=== PATIENT | female | born 1950 | race Caucasian/White ===

== ENCOUNTER → 2019-08-08 | Outpatient (CLI) | payer BC, MEDICARE ==
[2019-08-08 08:45] LABS: BASOPHILS % (AUTO) 1 % (0-10); EOSINOPHILS % (AUTO) 2 % (0-10); HEMATOCRIT 40 % (35-52); HEMOGLOBIN 13.1 G/DL (11.5-16.0); LYMPHOCYTES % (AUTO) 31 % (12-44); MEAN CORPUSCULAR HEMOGLOBIN 29 PG (25-34); MEAN CORPUSCULAR HGB CONC 33 G/DL (32-36); MEAN CORPUSCULAR VOLUME 87 FL (80-99); MEAN PLATELET VOLUME 9.4 FL (7.4-10.4); MONOCYTES % (AUTO) 9 % (0-12); NEUTROPHILS % (AUTO) 57 % (42-75); PLATELET COUNT 281 10^3/uL (130-400); WHITE BLOOD COUNT 5.7 10^3/uL (4.3-11.0)
[2019-08-08 08:46] LABS: BASOPHILS # (AUTO) 0.1 10^3/uL (0.0-0.1); EOSINOPHILS # (AUTO) 0.1 10^3/uL (0.0-0.3); LYMPHOCYTES # (AUTO) 1.8 X 10^3 (1.0-4.0); MONOCYTES # (AUTO) 0.5 X 10^3 (0.0-1.0); NEUTROPHILS # (AUTO) 3.3 X 10^3 (1.8-7.8)
[2019-08-08 08:50] LABS: BACTERIA,URINE NEGATIVE /HPF; BILIRUBIN,URINE NEGATIVE (NEGATIVE); CLARITY,URINE CLEAR; COLOR,URINE YELLOW; GLUCOSE, URINE (UA) NEGATIVE (NEGATIVE); KETONES,URINE NEGATIVE (NEGATIVE); LEUKOCYTE ESTERASE ,URINE NEGATIVE (NEGATIVE); NITRITE,URINE NEGATIVE (NEGATIVE); PROTEIN,URINE NEGATIVE (NEGATIVE); RBC,URINE 0-2 /HPF; SQUAMOUS EPITHELIAL CELL,UR 0-2 /HPF
[2019-08-08 09:25] LABS: ALANINE AMINOTRANSFERASE 28 U/L (0-55); ALBUMIN 4.3 GM/DL (3.2-4.5); ALKALINE PHOSPHATASE 73 U/L (40-136); BILIRUBIN,TOTAL 0.2 MG/DL (0.1-1.0); BUN/CREATININE RATIO 18; CALCIUM 9.7 MG/DL (8.5-10.1); CARBON DIOXIDE 25 MMOL/L (21-32); CHLORIDE 102 MMOL/L (98-107); CREATININE SERUM 0.88 MG/DL (0.60-1.30); GFR ESTIMATED > 60; GLUCOSE 93 MG/DL (70-105); SODIUM 140 MMOL/L (135-145); TOTAL PROTEIN 7.3 GM/DL (6.4-8.2)
[2019-08-09 01:08] LABS: CHOLESTEROL 222 MG/DL (< 200); HDL CHOLESTEROL 87 MG/DL (40-60); TRIGLYCERIDES 50 MG/DL (<150); VLDL CHOLESTEROL 10 MG/DL (5-40)
== END ==
LOC: LAB FS 07:52
PROVIDERS: ATTEND Family Medicine
DX: E11.9 Type 2 diabetes mellitus without complications (principal)
CPT/HCPCS: 36415; 80053; 80061; 81000; 82043; 83036; 85025

== ENCOUNTER → 2020-04-08 | Outpatient (CLI) | payer MEDICARE, BC ==
[2020-04-08 10:15] LABS: POTASSIUM 4.9 MMOL/L (3.6-5.0); SODIUM 139 MMOL/L (135-145)
[2020-04-08 10:16] LABS: CARBON DIOXIDE 26 MMOL/L (21-32); CHLORIDE 101 MMOL/L (98-107)
[2020-04-08 10:17] LABS: ALANINE AMINOTRANSFERASE 17 U/L (0-55); ALBUMIN 4.3 GM/DL (3.2-4.5); ALKALINE PHOSPHATASE 101 U/L (40-136); BILIRUBIN,TOTAL 0.2 MG/DL (0.1-1.0); BUN/CREATININE RATIO 22; CALCIUM 9.6 MG/DL (8.5-10.1); CREATININE SERUM 0.77 MG/DL (0.60-1.30); GFR ESTIMATED > 60; GLUCOSE 168 MG/DL (70-105); TOTAL PROTEIN 7.4 GM/DL (6.4-8.2)
[2020-04-08 10:18] LABS: BASOPHILS % (AUTO) 1 % (0-10); EOSINOPHILS % (AUTO) 2 % (0-10); HEMATOCRIT 38 % (35-52); HEMOGLOBIN 12.6 G/DL (11.5-16.0); LYMPHOCYTES % (AUTO) 39 % (12-44); MEAN CORPUSCULAR HEMOGLOBIN 29 PG (25-34); MEAN CORPUSCULAR HGB CONC 33 G/DL (32-36); MEAN CORPUSCULAR VOLUME 88 FL (80-99); MEAN PLATELET VOLUME 9.7 FL (7.4-10.4); MONOCYTES % (AUTO) 8 % (0-12); NEUTROPHILS # (AUTO) 2.5 X 10^3 (1.8-7.8); NEUTROPHILS % (AUTO) 50 % (42-75); PLATELET COUNT 274 10^3/uL (130-400)
[2020-04-08 10:19] LABS: EOSINOPHILS # (AUTO) 0.1 10^3/uL (0.0-0.3); MONOCYTES # (AUTO) 0.4 X 10^3 (0.0-1.0)
[2020-04-08 14:58] LABS: CHOLESTEROL 210 MG/DL (< 200); HDL CHOLESTEROL 83 MG/DL (40-60); TRIGLYCERIDES 62 MG/DL (<150); VLDL CHOLESTEROL 12 MG/DL (5-40)
== END ==
LOC: LAB FS 08:48
PROVIDERS: ATTEND Family Medicine
DX: E11.9 Type 2 diabetes mellitus without complications (principal)
CPT/HCPCS: 36415; 80053; 80061; 82043; 83036; 85025

== ENCOUNTER → 2020-10-22 | Outpatient (CLI) | payer MEDICARE, BC ==
--- NOTE | 2020-10-22 14:40 | Diagnostic Imaging Report ---
INDICATION: Fall with right wrist pain. TIME OF EXAM: 01:41 p.m. FINDINGS: Three views of right wrist demonstrate impacted fracture distal radius. The possibility of intra-articular extension cannot be entirely excluded. Distal ulna is intact. Carpus is intact. IMPRESSION: Nondisplaced distal radius fracture. Dictated by: Dictated on workstation # [id number]
--- NOTE | 2020-10-22 14:50 | Diagnostic Imaging Report ---
INDICATION: Fall with right hand pain. Time of exam 1:39 PM 3 views of the right hand were obtained. Metacarpals and phalanges are intact. There appears be a fracture of the distal radius. This will be assessed on wrist radiographs. IMPRESSION: Findings suggestive of distal radius fracture. This will be assessed on the dedicated wrist radiograph. Dictated by: Dictated on workstation # [id number]
== END ==
LOC: RAD FS 13:31
PROVIDERS: ATTEND Family Medicine
DX: S52.501A Unspecified fracture of the lower end of right radius, initial encounter for closed fracture (principal); W19.XXXA Unspecified fall, initial encounter
CPT/HCPCS: 73110; 73130

== ENCOUNTER → 2020-10-26 | Outpatient (CLI) | payer MEDICARE, BC ==
[2020-10-26 10:41] LABS: CLARITY,URINE CLOUDY; COLOR,URINE YELLOW; GLUCOSE, URINE (UA) NEGATIVE (NEGATIVE); KETONES,URINE TRACE (NEGATIVE); LEUKOCYTE ESTERASE ,URINE 3+ (NEGATIVE); NITRITE,URINE POSITIVE (NEGATIVE); PROTEIN,URINE 1+ (NEGATIVE)
[2020-10-26 10:42] LABS: BACTERIA,URINE FEW /HPF; BILIRUBIN,URINE NEGATIVE (NEGATIVE); RBC,URINE 0-2 /HPF; WBC,URINE >100 /HPF
== END ==
LOC: LAB FS 09:58
PROVIDERS: ATTEND Family Medicine
DX: R30.9 Painful micturition, unspecified (principal)
CPT/HCPCS: 81000; 87077; 87088; 87186

== ENCOUNTER → 2020-12-24 | Outpatient (CLI) | payer MEDICARE, BC ==
[2020-12-24 08:26] LABS: COLOR,URINE YELLOW
[2020-12-24 08:27] LABS: BACTERIA,URINE NEGATIVE /HPF; BILIRUBIN,URINE NEGATIVE (NEGATIVE); CLARITY,URINE CLEAR; GLUCOSE, URINE (UA) NEGATIVE (NEGATIVE); KETONES,URINE NEGATIVE (NEGATIVE); LEUKOCYTE ESTERASE ,URINE NEGATIVE (NEGATIVE); NITRITE,URINE NEGATIVE (NEGATIVE); PH,URINE 6.5 (5-9); PROTEIN,URINE NEGATIVE (NEGATIVE); SQUAMOUS EPITHELIAL CELL,UR RARE /HPF; WBC,URINE RARE /HPF
[2020-12-24 08:27] LABS: WHITE BLOOD COUNT 6.2 10^3/uL (4.3-11.0)
[2020-12-24 08:28] LABS: BASOPHILS % (AUTO) 1 % (0-10); EOSINOPHILS % (AUTO) 3 % (0-10); HEMATOCRIT 36 % (35-52); HEMOGLOBIN 11.8 G/DL (11.5-16.0); LYMPHOCYTES % (AUTO) 29 % (12-44); MEAN CORPUSCULAR HEMOGLOBIN 28 PG (25-34); MEAN CORPUSCULAR HGB CONC 33 G/DL (32-36); MEAN CORPUSCULAR VOLUME 87 FL (80-99); MEAN PLATELET VOLUME 9.5 FL (7.4-10.4); MONOCYTES % (AUTO) 8 % (0-12); NEUTROPHILS # (AUTO) 3.7 X 10^3 (1.8-7.8); NEUTROPHILS % (AUTO) 59 % (42-75); PLATELET COUNT 237 10^3/uL (130-400)
[2020-12-24 08:29] LABS: BAND NEUTROPHILS 0 %; BASOPHILS % (MANUAL) 1 %; CHLORIDE 101 MMOL/L (98-107); EOSINOPHILS # (AUTO) 0.2 10^3/uL (0.0-0.3); EOSINOPHILS % (MANUAL) 2 %; LYMPHOCYTES # (AUTO) 1.8 X 10^3 (1.0-4.0); LYMPHOCYTES % (MANUAL) 36 %; MONOCYTES # (AUTO) 0.5 X 10^3 (0.0-1.0); MONOCYTES % (MANUAL) 1 %; NEUTROPHILS % (MANUAL) 60 %; POTASSIUM 4.2 MMOL/L (3.6-5.0); SODIUM 140 MMOL/L (135-145)
[2020-12-24 08:30] LABS: ALANINE AMINOTRANSFERASE 12 U/L (0-55); ALKALINE PHOSPHATASE 69 U/L (40-136); BILIRUBIN,TOTAL 0.3 MG/DL (0.1-1.0); BUN/CREATININE RATIO 22; CALCIUM 9.3 MG/DL (8.5-10.1); CARBON DIOXIDE 27 MMOL/L (21-32); CREATININE SERUM 0.81 MG/DL (0.60-1.30); GFR ESTIMATED > 60; GLUCOSE 108 MG/DL (70-105); TOTAL PROTEIN 7.1 GM/DL (6.4-8.2)
== END ==
LOC: LAB FS 07:15
PROVIDERS: ATTEND Family Medicine
DX: E10.9 Type 1 diabetes mellitus without complications (principal); R31.29 Other microscopic hematuria; R63.4 Abnormal weight loss
CPT/HCPCS: 36415; 80053; 81000; 82043; 83036; 84443; 84681; 85007; 85027

== ENCOUNTER 2021-06-25 13:11 | Emergency (ER) | payer MEDICARE, BC ==
[~2021-06-25] VITALS: Ht 162.5 cm; Wt 52.1 kg
--- NOTE | 2021-06-25 13:20 | ED Upper Extremity ---
General Stated Complaint: RT ELBOW INJ History of Present Illness Date Seen by Provider: Jun 25, 2021 Time Seen by Provider: 13:18 Initial Comments 71-year-old female presents with right elbow injury. Patient reports that she slipped due to the rain and fell. Patient reports she landed directly on her right elbow onto concrete. Patient has pain is mostly on the medial aspect. Patient thinks she is up-to-date on her tetanus. She reports a small skin tear on her left knee but does not feel that that is to be evaluated. Allergies and Home Medications Allergies Coded Allergies: Sulfa (Sulfonamide Antibiotics) (Verified Allergy, Unknown, 06/25/21) nabumetone (Verified Allergy, Unknown, 06/25/21) nitrofurantoin (Verified Allergy, Unknown, 06/25/21) Patient Home Medication List Home Medication List Reviewed: Yes Review of Systems Constitutional: no symptoms reported EENTM: no symptoms reported Respiratory: no symptoms reported Cardiovascular: no symptoms reported Gastrointestinal: no symptoms reported Genitourinary: no symptoms reported Musculoskeletal: see HPI Skin: see HPI Psychiatric/Neurological: No Symptoms Reported Physical Exam Vital Signs Vital Signs - First Documented 06/25/21 13:15 Temp 36.8 Pulse 85 Resp 16 B/P (MAP) 191/88 (122) Pulse Ox 99 O2 Delivery Room Air Capillary Refill : Height, Weight, BMI Height: '" Weight: lbs. oz. kg; BMI Method: General Appearance: WD/WN, no apparent distress Neck: supple Cardiovascular: normal peripheral pulses, regular rate, rhythm Respiratory: lungs clear, normal breath sounds Shoulder: normal inspection Elbow/Forearm: Right, bone tenderness, limited ROM (due to pain ), soft tissue tenderness Wrist: Yes normal inspection Hand: normal inspection Neurologic/Tendon: normal sensation Neurologic/Psychiatric: alert, normal mood/affect, oriented x 3 Skin: warm/dry Progress/Results/Core Measures Results/Orders My Orders Orders - KELSEA CAMACHO DO Elbow 3 View Right (06/25/21 13:21) Vital Signs/I&O 06/25/21 13:15 Temp 36.8 Pulse 85 Resp 16 B/P (MAP) 191/88 (122) Pulse Ox 99 O2 Delivery Room Air Progress Progress Note : Progress Note Patient's x-ray is negative for any acute fracture or dislocation. Patient with contusion of her right elbow. Recommended Tylenol, ibuprofen and topical lidocaine for pain along with some ice. Patient was stable and discharged Departure Impression Primary Impression: Contusion of elbow Qualified Codes: S50.01XA - Contusion of right elbow, initial encounter Disposition: 01 HOME, SELF-CARE Condition: Stable Departure-Patient Inst. Referrals: KATHY BOYD MD (PCP/Family) Primary Care Physician Patient Instructions: Contusion (DC) Add. Discharge Instructions: Ice to affected area for 20 minutes 3-4 times daily for the next 24 to 48 hours Tylenol or ibuprofen as needed for pain 4% topical lidocaine with menthol cream gel or patch as needed for pain, use as directed on package Follow-up with your primary care provider if symptoms are not improving or worsen over the next 7 to 10 days KELSEA CAMACHO DO Jun 25, 2021 13:20
--- NOTE | 2021-06-25 14:04 | Diagnostic Imaging Report ---
INDICATION: Fall with right elbow pain and decreased range of motion. AP, oblique and lateral views of the right elbow are obtained. FINDINGS: No acute fracture or dislocation is identified. No abnormal lytic or sclerotic focus is seen, and there is no radiopaque foreign body. IMPRESSION: No acute abnormality. Dictated by: Dictated on workstation # [id number]
[2021-06-25 14:18] VITALS: BP 191/88
== END 2021-06-25 14:20 | disposition home or self-care (01) ==
LOC: EDUNIT# 13:11 → ER FS 13:12
DX: S50.01XA Contusion of right elbow, initial encounter (principal); W01.0XXA Fall on same level from slipping, tripping and stumbling without subsequent striking against object, initial encounter
CPT/HCPCS: 73080

== ENCOUNTER → 2021-10-29 | Outpatient (CLI) | payer MEDICARE, BC ==
[2021-10-29 09:53] LABS: POTASSIUM 4.8 MMOL/L (3.6-5.0)
[2021-10-29 09:54] LABS: ALBUMIN 4.3 GM/DL (3.2-4.5); BILIRUBIN,TOTAL 0.3 MG/DL (0.1-1.0); CALCIUM 9.9 MG/DL (8.5-10.1); CREATININE SERUM 0.79 MG/DL (0.60-1.30); TOTAL PROTEIN 7.5 GM/DL (6.4-8.2)
== END ==
LOC: LAB FS 08:32
PROVIDERS: ATTEND Family Medicine
DX: E10.9 Type 1 diabetes mellitus without complications (principal)
CPT/HCPCS: 36415; 80053; 83036

== ENCOUNTER → 2022-01-21 | Outpatient (CLI) | payer MEDICARE, BC ==
[2022-01-21 10:39] LABS: POTASSIUM 4.5 MMOL/L (3.6-5.0)
[2022-01-21 10:40] LABS: ALBUMIN 4.2 GM/DL (3.2-4.5); BILIRUBIN,TOTAL 0.3 MG/DL (0.1-1.0); CALCIUM 9.6 MG/DL (8.5-10.1); CREATININE SERUM 0.79 MG/DL (0.60-1.30); TOTAL PROTEIN 7.3 GM/DL (6.4-8.2)
== END | disposition home or self-care (01) ==
LOC: LAB FS 08:06
PROVIDERS: ATTEND Family Medicine
DX: E10.9 Type 1 diabetes mellitus without complications (principal)
CPT/HCPCS: 36415; 80053; 80061; 82043; 83036

== ENCOUNTER → 2022-01-28 | Outpatient (CLI) | payer SELFPAY ==
--- NOTE | 2022-01-28 11:06 | Diagnostic Imaging Report ---
INDICATION: Diabetes CT cardiac calcium scoring study performed with noncontrast images of the heart, followed by calculation of cardiac score. Dose reduction protocol was used. Raw data images demonstrate no evidence of mediastinal adenopathy or hilar adenopathy. The visualized portions of the lung neff are clear. The entirety of the lungs are not included on the study. There are coronary calcifications mainly in the LAD territory. Cardiac calcium score is as follows, score of 89.9 in the LAD, score of 3.5 in the RCA. Score of 0 for remaining territories. IMPRESSION: Overall coronary calcium score was 93.4 compatible with [id number] overall plaque burden. The predominance of the visualized calcifications are in the LAD territory. Dictated by: Dictated on workstation # [id number]
== END ==
LOC: RAD FS 10:05
PROVIDERS: ATTEND Family Medicine
DX: E10.9 Type 1 diabetes mellitus without complications (principal)
CPT/HCPCS: 75571